=== PATIENT | male | born 1975 | race Caucasian/White ===

== ENCOUNTER 2016-12-27 04:28 | Emergency (ER) | payer BC ==
[~2016-12-27] VITALS: Ht 180.3 cm; Wt 107.5 kg
[~2016-12-27 04:28] MED LIST: BPR100TCR PO; BUPR300T PO; FEXO-14 PO; [UNRECOGNIZED DRUG - OTHER] TOP
[2016-12-27] MEDS ORDERED: NS IV 1000 ML 1,000 ML IV ONE (04:44)
[2016-12-27] MEDS ORDERED: ONDANSETRON 4 MG/2 ML (SDV) Z0FRAN IVP ONE (04:45)
[2016-12-27] MEDS ORDERED: KETOROLAC 30 MG/ML VIAL IVP ONE (04:45)
[2016-12-27] MEDS ORDERED: Topamax (05:13)
[2016-12-27] MEDS ORDERED: Lexapro (05:13)
[2016-12-27] MEDS ORDERED: Maxalt (05:13)
[2016-12-27] MEDS ORDERED: VIRTUSSIN AC (05:13)
[2016-12-27] MEDS ORDERED: Prednisone (05:13)
[2016-12-27] MEDS ORDERED: Augmentin (05:13)
[2016-12-27] MEDS ORDERED: RX-ALBUTEROL INHALER (PROAIR) 8 GM IH STA (05:23)
--- NOTE | 2016-12-27 05:26 | ED General ---
General Chief Complaint: Head/Cervical Problems Stated Complaint: MIGRAINE Nursing Triage Note: Amb to ED reporting a migraine of 2 hours or so. Reports gets headaches if not resting well. States he has been kept awake some by his 2 y/o old being "clingy". Pt drove from [facility] [place] Nursing Sepsis Screen: No Definite Risk Source of Information: Patient Exam Limitations: No Limitations History of Present Illness Time Seen by Provider: 04:20 Initial Comments This 41-year-old gentleman presents to the emergency room with migraine headache for the past few hours. He has a long history of migraines. He has associated nausea and vomiting. He also was recently diagnosed with pneumonia and is presently on antibiotics and prednisone. He did not take any pain medications at home. Allergies and Home Medications Allergies Coded Allergies: No Known Drug Allergies (Unverified , 03/21/12) Home Medications Ondansetron 4 Mg Tab.rapdis, 4 MG SL Q4H PRN for NAUSEA/VOMITING-1ST LINE, #10 Prescribed by: KRISTY TREVIÑO on 12/27/16 0554 [Augmentin] , (Reported) [Lexapro] , (Reported) [Maxalt] , (Reported) [Prednisone] , (Reported) [Topamax] , (Reported) [Virtussin AC] , (Reported) Constitutional: no symptoms reported EENTM: no symptoms reported Respiratory: see HPI Cardiovascular: no symptoms reported Gastrointestinal: see HPI Genitourinary: no symptoms reported Musculoskeletal: no symptoms reported Skin: no symptoms reported Psychiatric/Neurological: See HPI Hematologic/Lymphatic: No Symptoms Reported Past Oxdlgkt-Hfaaqp-Verfyl Hx Patient Social History Alcohol Use: Denies Use Recreational Drug Use: No Smoking Status: Never a Smoker Recent Foreign Travel: No Contact w/Someone Who Travel: No Recent Infectious Disease Expo: No Recent Hopitalizations: No Seasonal Allergies Seasonal Allergies: No Surgeries HX Surgeries: No Respiratory Hx Respiratory Disorders: Yes Respiratory Disorders: Pneumonia Cardiovascular Hx Cardiac Disorders: Yes Cardiac Disorders: Hypertension Neurological Hx Neurological Disorders: Yes Neurological Disorders: Headaches /Migraines Reproductive System Hx Reproductive Disorders: No Genitourinary Hx Genitourinary Disorders: No Gastrointestinal Hx Gastrointestinal Disorders: No Musculoskeletal Hx Musculoskeletal Disorders: No Endocrine Hx Endocrine Disorders: No HEENT HX ENT Disorders: No Cancer Hx Cancer: No Blood Transfusions Hx Blood Disorders: No Physical Exam Vital Signs Vital Sign - Last 12Hours 12/27/16 04:35 Temp 98.0 Pulse 68 Resp 20 B/P (MAP) 149/107 Pulse Ox 95 O2 Delivery Room Air Capillary Refill : Less Than 3 Seconds General Appearance: No Apparent Distress HEENT: PERRL/EOMI, Normal ENT Inspection Respiratory: Lungs Clear, Normal Breath Sounds, No Accessory Muscle Use, No Respiratory Distress Cardiovascular: Regular Rate, Rhythm, No Murmur, Normal Peripheral Pulses Gastrointestinal: Normal Bowel Sounds, Non Tender, Soft Extremity: Normal Inspection, No Pedal Edema Neurologic/Psychiatric: Alert, Oriented x3, No Motor/Sensory Deficits, Normal Mood/Affect, technical instructor course developer II-XII Norm as Tested Skin: Normal Color, Warm/Dry Progress/Results/Core Measures Results/Orders My Orders Orders - KRISTY BRYAN MD Saline Lock/Iv-Start (12/27/16 04:44) Ns Iv 1000 Ml (Sodium Chloride 0.9%) (12/27/16 04:44) Ketorolac Injection (Toradol Injection) (12/27/16 04:45) Ondansetron Injection (Zofran Injectio (12/27/16 04:45) Albuterol/Ipra Inhalation Soln (Duoneb I (12/27/16 05:30) Svn Sm Volume Nebulizer Rt-Rfs (12/27/16 05:23) Rx-Albuterol Inhaler (Rx-Proair) (12/27/16 05:23) Medications Given in ED Current Medications Medications Dose Ordered Sig/Dominguez Route Start Time Stop Time Status Last Admin Dose Admin Albuterol/ Ipratropium 3 ml ONCE ONCE INH 12/27/16 05:30 12/27/16 05:31 DC 12/27/16 05:34 3 ML Ketorolac Tromethamine 30 mg ONCE ONCE IVP 12/27/16 04:45 12/27/16 04:46 DC 12/27/16 04:55 30 MG Ondansetron HCl 8 mg ONCE ONCE IVP 12/27/16 04:45 12/27/16 04:46 DC 12/27/16 04:55 8 MG Sodium Chloride 1,000 ml @ 0 mls/hr Q0M ONCE IV 12/27/16 04:44 12/27/16 04:46 DC 12/27/16 04:54 999 MLS/HR Vital Signs/I&O Vital Sign - Last 12Hours 12/27/16 12/27/16 12/27/16 04:35 05:34 05:43 Temp 98.0 Pulse 68 Resp 20 B/P (MAP) 149/107 Pulse Ox 95 93 93 O2 Delivery Room Air Blood Pressure Mean: 121 Progress Note : Time: 05:24 Progress Note Patient was noted to have oxygen saturations dropping into the 88-90 percent range. He has developed wheezing since arriving in the emergency room. A DuoNeb treatment has been ordered along with a take-home pro-air inhaler. Respiratory therapy will provide inhaler education. He was treated with Zofran and Toradol for migraine symptoms. IV fluids are also infusing. He reports his pain is down to 2/10. Departure Impression Impression: Primary Impression: Migraine headache Qualified Codes: G43.009 - Migraine without aura, not intractable, without status migrainosus Additional Impressions: Nausea and vomiting Qualified Codes: R11.2 - Nausea with vomiting, unspecified Wheezing Disposition: 01 HOME, SELF-CARE Condition: Improved Departure-Patient Inst. Decision time for Depature: 05:49 Referrals: AMBER BATES DO (PCP) Primary Care Physician Patient Instructions: Migraine Headache (DC) Add. Discharge Instructions: You may use your inhaler up to 4 puffs in a four-hour period of time. Use for uncontrolled cough, shortness of air or wheezing. Complete your medications as prescribed for pneumonia. You may use ibuprofen up to 800 mg every 8 hours as needed for headache. Add Tylenol (acetaminophen) up to 1000 mg every 6 hours as needed for additional pain relief. Stay well-hydrated. Return to care if symptoms worsen. Follow-up with your primary care provider as soon as possible. All discharge instructions reviewed with patient and/or family. Voiced understanding. Scripts Ondansetron (Zofran Odt) 4 Mg Tab.rapdis 4 MG SL Q4H Y for NAUSEA/VOMITING-1ST LINE, #10 TAB Prov: KRISTY BRYAN MD 12/27/16 KRISTY BRYAN MD December 27, 2016 05:26
[2016-12-27] MEDS ORDERED: RT-ALBUTEROL/IPRATROPIUM 3 ML (DUONEB) VIAL INH ONE (05:30)
[2016-12-27] MEDS ORDERED: ONDA4TAB8 SL (05:54)
[2016-12-27 06:05] VITALS: BP 151/89
== END 2016-12-27 06:05 | disposition home or self-care (01) ==
LOC: EDUNIT# 04:28 → ER 04:31
DX: G40.909 Epilepsy, unspecified, not intractable, without status epilepticus (principal); R11.2 Nausea with vomiting, unspecified; R06.2 Wheezing
CPT/HCPCS: 94640; 94760

== ENCOUNTER 2018-06-12 19:59 | Emergency (ER) | payer BC ==
[~2018-06-12] VITALS: Ht 180.3 cm; Wt 106.6 kg
[~2018-06-12 19:59] MED LIST changes: +Augmentin; +Lexapro; +Maxalt; +ONDA4TAB8 SL; +Prednisone; +Topamax; +VIRTUSSIN AC
[2018-06-12] MEDS ORDERED: LACTATED RINGERS 1,000 ML IV ONE ×2 (20:13→21:01)
[2018-06-12] MEDS ORDERED: SUMAtriptan 6 MG/0.5 ML (IMITREX) INJ SQ ONE (20:15)
[2018-06-12] MEDS ORDERED: ONDANSETRON 4 MG/2 ML (SDV) Z0FRAN IVP ONE (20:15)
--- NOTE | 2018-06-12 20:20 | ED Headache ---
General Chief Complaint: Head/Cervical Problems Stated Complaint: MIGRAINE Source: patient Exam Limitations: no limitations History of Present Illness Date Seen by Provider: Jun 12, 2018 Time Seen by Provider: 20:09 Initial Comments PT ARRIVES VIA POV FROM HOME C/O MIGRAINE X 3 HOURS --STATES HE WAS TAKING A NAP AND WOKE UP WITH MIGRAINE HEADACHE IS FRONTAL AND BEHIND EYES C/O NAUSEA/VOMITING--HAS VOMITED X 6 STATES HE TOOK MAXALT, BUT THREW IT UP NO VISION CHANGES NO FEVER OR RECENT ILLNESS NO NECK PAIN OR STIFFNESS NO PARESTHESIAS OR MOTOR DEFICITS STATES HE HAS MIGRAINES 2-6 TIMES A MONTH, AND MAXALT USUALLY HELPS STATES THAT ABOUT ONCE A YEAR, IT IS BAD ENOUGH THAT HE HAS TO COME TO ER--THIS IS NO DIFFERENT IN ANY WAY, THAN ANY HEADACHES HE HAS HAD IN THE PAST IS NOT ON ANY MAINTENANCE/PREVENTIVE MEDICATION FOR MIGRAINES HAS NOT SEEN A NEUROLOGIST STATES HE DID NOT GET MUCH SLEEP LAST NIGHT--DID NOT GET TO BE UNTIL LATE AND WOKE UP EARLY--THIS IS OFTEN A TRIGGER FOR THEM. PCP: FERNANDEZ SAEED Allergies and Home Medications Allergies Coded Allergies: No Known Drug Allergies (Unverified , 03/21/12) Home Medications Ondansetron 4 Mg Tab.rapdis, 4 MG SL Q4H PRN for NAUSEA/VOMITING-1ST LINE Prescribed by: KRISTY TREVIÑO on 12/27/16 0554 Ondansetron HCl 4 Mg Tab, 4-8 MG PO Q4H Prescribed by: DERICK OAKES on 06/12/18 2106 Patient Home Medication List Home Medication List Reviewed: Yes Review of Systems Review of Systems Constitutional: no symptoms reported; No chills, No diaphoresis, No dizziness, No fever Eyes: Denies Blurred Vision, Denies Decreased Acuity; Pain; Denies Photophobia Ears, Nose, Mouth, Throat: no symptoms reported Cardiovascular: no symptoms reported Gastrointestinal: see HPI; No abdominal pain, No diarrhea; nausea, vomiting Genitourinary: no symptoms reported Musculoskeletal: no symptoms reported; No back pain, No neck pain Psychiatric/Neurological: See HPI, Headache; Denies Numbness, Denies Paresthesia, Denies Seizure, Denies Tingling, Denies Tremors, Denies Weakness Past Evuyyot-Shphge-Xvhqdb Hx Patient Social History Recent Foreign Travel: No Contact w/Someone Who Travel: No Recent Hopitalizations: No Seasonal Allergies Seasonal Allergies: No Past Medical History Surgeries: No Respiratory: No Pneumonia Cardiac: Yes Hypertension Neurological: Yes Headaches /Migraines Reproductive Disorders: No Genitourinary: No Gastrointestinal: No Musculoskeletal: No Endocrine: No HEENT: No Cancer: No Psychosocial: No Integumentary: No Blood Disorders: No Physical Exam Vital Signs Vital Signs - First Documented 06/12/18 20:05 Temp 97.3 Pulse 78 Resp 22 B/P (MAP) 146/114 (125) Pulse Ox 94 Capillary Refill : Height, Weight, BMI Height: 5'11.00" Weight: 237lbs. oz. 107.581052gv; BMI Method:Stated General Appearance: WD/WN, no apparent distress, other (VOMITING ON ARRIVAL) HEENT: No photophobia Cardiovascular: regular rate, rhythm, no murmur Respiratory: normal breath sounds, no respiratory distress, no accessory muscle use Gastrointestinal: non tender, soft Extremities: normal inspection, normal capillary refill Psychiatric: alert, oriented x 3 Crainal Nerves: normal hearing, normal speech, PERRL Coordination/Gait: normal gait Motor/Sensory: no motor deficit, no sensory deficit Skin: normal color, warm/dry Progress/Results/Core Measures Results/Orders My Orders Orders - DERICK OAKES DO Monitor-Rhythm Ecg Trace Only (06/12/18 20:13) Saline Lock/Iv-Start (06/12/18 20:13) Lactated Ringers (Lr 1000 Ml Iv Solution (06/12/18 20:13) Ondansetron Injection (Zofran Injectio (06/12/18 20:15) Sumatriptan Injection (Imitrex Injection (06/12/18 20:15) Ketorolac Injection (Toradol Injection) (06/12/18 20:30) Promethazine Injection (Phenergan Injec (06/12/18 20:30) Saline Lock/Iv-Start (06/12/18 21:01) Lactated Ringers (Lr 1000 Ml Iv Solution (06/12/18 21:01) Rx-Ondansetron Po (Rx-Zofran Po) (06/12/18 21:03) Rx-Ondansetron Po (Rx-Zofran Po) (06/12/18 21:07) Medications Given in ED Current Medications Medications Dose Ordered Sig/Dominguez Route Start Time Stop Time Status Last Admin Dose Admin Ketorolac Tromethamine 30 mg ONCE ONCE IVP 06/12/18 20:30 06/12/18 20:31 DC 06/12/18 20:41 30 MG Lactated Ringer's 1,000 ml @ 0 mls/hr Q0M ONCE IV 06/12/18 20:13 06/12/18 20:15 DC 06/12/18 20:30 0 MLS/HR Lactated Ringer's 1,000 ml @ 0 mls/hr Q0M ONCE IV 06/12/18 21:01 06/12/18 21:34 DC 06/12/18 21:05 0 MLS/HR Ondansetron HCl 8 mg ONCE ONCE IVP 06/12/18 20:15 06/12/18 20:16 DC 06/12/18 20:30 8 MG Promethazine HCl 25 mg ONCE ONCE IVP 06/12/18 20:30 06/12/18 20:31 DC 06/12/18 20:41 25 MG Sumatriptan Succinate 6 mg ONCE ONCE SQ 06/12/18 20:15 06/12/18 20:16 DC 06/12/18 20:30 6 MG Vital Signs/I&O 06/12/18 20:05 Temp 97.3 Pulse 78 Resp 22 B/P (MAP) 146/114 (125) Pulse Ox 94 Progress Progress Note : Progress Note SYMPTOMS RESOLVED WITH MEDICATIONS AND FLUIDS NO FURTHER VOMITING AND HEADACHE IS COMPLETELY GONE Departure Impression Primary Impression: Migraine Disposition: 01 HOME, SELF-CARE Condition: Improved Departure-Patient Inst. Referrals: NO,LOCAL PHYSICIAN (PCP) Primary Care Physician Patient Instructions: Migraine Headache (DC) Add. Discharge Instructions: HOME, REST LOTS OF CLEAR LIQUIDS TAKE MAXALT NEEDED FOR HEADACHE FOLLOW UP WITH DR. OH TOMORROW IF NO BETTER, RETURN TO ER IF WORSE All discharge instructions reviewed with patient and/or family. Voiced understanding. Scripts Ondansetron HCl (Zofran) 4 Mg Tab 4-8 MG PO Q4H for Nausea/Vomiting, #10 TAB Prov: DERICK OAKES DO 06/12/18 DERICK OAKES DO Jun 12, 2018 20:20
[2018-06-12] MEDS ORDERED: PROMETHAZINE INJ 25 MG/ML (PHENERGAN) AMP IVP ONE (20:30)
[2018-06-12] MEDS ORDERED: KETOROLAC 30 MG/ML VIAL IVP ONE (20:30)
[2018-06-12] MEDS ORDERED: ONDN4T PO (21:03)
[2018-06-12] MEDS ORDERED: RX-ONDANSETRON 4 MG ODT (ZOFRAN) PPK #4 PO STA (21:03)
[2018-06-12] MEDS ORDERED: RX-ONDANSETRON 4 MG ODT (ZOFRAN) PPK #4 ONE (21:07)
[2018-06-12 21:55] VITALS: BP 153/96
== END 2018-06-12 21:55 | disposition home or self-care (01) ==
LOC: EDUNIT# 19:59 → ER 20:00
DX: G43.909 Migraine, unspecified, not intractable, without status migrainosus (principal); I10 Essential (primary) hypertension; Z87.01 Personal history of pneumonia (recurrent)
CPT/HCPCS: 93041